=== PATIENT | female | born 1965 | race Caucasian/White ===

== ENCOUNTER 2020-06-28 13:58 | Observation (INO) ==
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
[2020-06-28] MEDS ORDERED: ONDANSETRON HCL/PF 2 MG/ML VIAL IV ONE (14:15)
[2020-06-28] MEDS ORDERED: ONDANSETRON HCL/PF 2 MG/ML VIAL ONE (14:16)
[2020-06-28 14:26] LABS: Hematocrit 43.3 % (37.0-47.0); Hemoglobin 13.8 gm/dL (12.5-16.0); Mean Cell Volume 97.1 fl (78-100); Mean Corpuscular Hemoglobin 30.9 pg (27-31); Mean Corpuscular Hgb Conc 31.9 g/dl (32-36); Mean Platelet Volume 8.4 fl (8-12.5); Neutrophil # 10.3 K/mm3 (1.3-6.0); Neutrophil % 61.6 % (42-75.0); Platelet Count 366 K/mm3 (150-450); Red Blood Count 4.46 M/mm3 (4.2-5.4); Red Cell Distribution Width 12.6 % (11.5-14.0); White Blood Count 16.7 K/mm3 (4.0-10.5)
[2020-06-28 14:36] LABS: Troponin I Less than 0.017 ng/mL (0.00-0.10)
[2020-06-28 14:40] LABS: ALT 51 U/L (19-67); AST 19 U/L (0-48); Albumin * 4.3 gm/dl (3.4-5.0); Alkaline Phosphatase * 119 U/L (50-170); Anion Gap 22.5 mmol/L (6.8-13.8); BUN/Creatinine Ratio 17.9 (9.0-21.6); Bilirubin, Total 0.6 mg/dL (0.0-1.1); Blood Urea Nitrogen 19 mg/dL (3-23); Ca. Corrected For Albumin 9.1 mg/dL (8.4-10.2); Calcium * 9.7 mg/dL (7.9-10.9); Carbon Dioxide 18.8 mmol/L (24-32.6); Chloride 96 mmol/L (97-106); Glucose * 161 mg/dL (70-110); Potassium 3.3 mmol/L (3.4-4.6); Sodium 134 mmol/L (132-142); TSH * 2.633 uIU/mL (0.358-3.74)
[2020-06-28 14:42] LABS: Cocaine Ur Negative (NEGATIVE); Urine Barbiturate Negative (NEGATIVE); Urine Opiates Negative (NEGATIVE); Urine PCP Negative (NEGATIVE); Urine THC Negative (NEGATIVE)
[2020-06-28 14:43] LABS: Urine Benzodiazepines Positive (NEGATIVE)
[2020-06-28] MEDS ORDERED: ACETAMINOPHEN 1,000 MG/100 ML BTL IV ONE (14:44)
[2020-06-28 14:48] LABS: Urine Appearance Clear (CLEAR); Urine Bilirubin Negative (NEGATIVE); Urine Blood Negative /ul (NEGATIVE); Urine Color Yellow; Urine Ketone Negative (NEGATIVE); Urine Protein 30 mg/dL (NEGATIVE); Urine Specific Gravity 1.025 SP.GR. (1.005-1.010); Urine Urobilinogen Normal (NORMAL)
[2020-06-28 14:49] LABS: Urine Nitrite Negative (NEGATIVE)
[2020-06-28 14:50] LABS: Urine Bacteria None Seen; Urine RBC None Seen /hpf (0-5); Urine WBC None Seen /hpf (0-5)
[2020-06-28] MEDS ORDERED: levETIRAcetam 500 MG TABLET PO ONE (17:07)
[2020-06-28] MEDS ORDERED: CYCLOBENZAPRINE HCL 10 MG TABLET PO ONE (17:23)
[2020-06-28] MEDS ORDERED: CYCLOBENZAPRINE HCL 10 MG TABLET ONE (17:24)
[2020-06-28] MEDS ORDERED: LORazepam 2 MG/ML DISP.SYRIN IV PRN (17:26)
[2020-06-28] MEDS ORDERED: ACETAMINOPHEN 500 MG TABLET PO PRN (17:27)
[2020-06-28] MEDS ORDERED: levETIRAcetam 500 MG TABLET ONE (18:45)
[2020-06-28] MEDS ORDERED: HYDROcodone/ACETAMINOPHEN 1 EACH TABLET PO PRN (20:08)
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
[2020-06-28] MEDS ORDERED: SIMVASTATIN 40 MG TABLET PO SCH (20:15)
[2020-06-28] MEDS: ACETAMINOPHEN 500 MG TABLET PO PRN (20:43)
[2020-06-28] MEDS: ALPRAZolam 0.25 MG TABLET PO PRN (20:44)
[2020-06-28] MEDS ORDERED: CYCLOBENZAPRINE HCL 10 MG TABLET PO PRN (21:00)
[2020-06-29] MEDS: ACETAMINOPHEN 500 MG TABLET PO PRN ×2 (02:45→09:04)
[2020-06-29] MEDS: levETIRAcetam 500 MG TABLET PO SCH ×2 (05:37→09:01)
[2020-06-29 06:44] LABS: Hematocrit 39.5 % (37.0-47.0); Hemoglobin 12.8 gm/dL (12.5-16.0); Mean Cell Volume 96.3 fl (78-100); Mean Corpuscular Hemoglobin 31.2 pg (27-31); Mean Corpuscular Hgb Conc 32.4 g/dl (32-36); Mean Platelet Volume 8.5 fl (8-12.5); Neutrophil # 6.6 K/mm3 (1.3-6.0); Neutrophil % 61.1 % (42-75.0); Platelet Count 302 K/mm3 (150-450); Red Cell Distribution Width 12.7 % (11.5-14.0); White Blood Count 10.8 K/mm3 (4.0-10.5)
[2020-06-29 06:57] LABS: Albumin * 3.9 gm/dl (3.4-5.0); Anion Gap 10.1 mmol/L (6.8-13.8); BUN/Creatinine Ratio 18.4 (9.0-21.6); Bilirubin, Total 0.8 mg/dL (0.0-1.1); Ca. Corrected For Albumin 9.2 mg/dL (8.4-10.2); Calcium * 9.4 mg/dL (7.9-10.9); Carbon Dioxide 29.6 mmol/L (24-32.6); Potassium 3.7 mmol/L (3.4-4.6); Total Protein 7.3 gm/dL (6.2-8.2)
[2020-06-29] MEDS ORDERED: LEVOTHYROXINE SODIUM 75 MCG TABLET PO SCH (07:00)
[2020-06-29] MEDS ORDERED: amLODIPine BESYLATE 5 MG TABLET PO SCH (09:00)
[2020-06-29] MEDS ORDERED: LOSARTAN POTASSIUM 50 MG TABLET PO SCH (09:00)
[2020-06-29] MEDS ORDERED: MELOXICAM 15 MG TABLET PO SCH (09:00)
[2020-06-29] MEDS ORDERED: HYDROCHLOROTHIAZIDE 25 MG TABLET PO SCH (09:00)
[2020-06-29] MEDS ORDERED: levETIRAcetam 500 MG TABLET PO SCH (09:00)
[2020-06-29] MEDS ORDERED: VITAMIN B COMP W-C 1 TAB TABLET PO SCH (09:00)
[2020-06-29] MEDS ORDERED: CITALOPRAM HYDROBROMIDE 10 MG TABLET PO SCH (09:00)
[2020-06-29] MEDS: ALPRAZolam 0.25 MG TABLET PO PRN (09:05)
[2020-06-29] MEDS ORDERED: FLU VACC QS2020-21(6MOS UP)/PF 60 MCG/0.5 ML SYRINGE IM ONE (10:00)
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
[2020-06-29 13:15] VITALS: BP 128/71
[2020-06-29] MEDS ORDERED: SIMVASTATIN 40 MG TABLET PO SCH (21:00)
== END 2020-06-29 13:00 | disposition home or self-care (01) ==
LOC: MS 13:58 → ER 13:58
PROVIDERS: ADMIT Family Medicine; ATTEND Family Medicine